=== PATIENT | male | born 1960 | race African-American/Black ===

== ENCOUNTER 2022-06-27 06:37 | Inpatient (IN) | payer MEDICARE, MEDICAID ==
[~2022-06-27] VITALS: Ht 182.9 cm; Wt 68.0 kg
[2022-06-27 08:09] LABS: BASOPHILS % 1.2 % (0.0-2.0); EOSINOPHILS % 1.3 % (0.0-5.0); HEMATOCRIT. 46.1 % (42.0-52.0); HEMOGLOBIN. 15.9 g/dL (14.0-18.0); LYMPHOCYTES % 27.6 % (20.0-50.0); MEAN CORPUSCULAR HEMOGLOBIN 35.2 pg (28.0-32.0); MEAN CORPUSCULAR VOLUME 102.5 fL (80.0-94.0); MEAN PLATELET VOLUME 7.3 fl (7.4-10.4); MONOCYTES % 4.4 % (2.0-8.0); NEUTROPHILS % 65.5 % (40.0-76.0); PLATELET 334 x1000/uL (130-400); RED CELL DISTRIBUTION WIDTH 15.6 % (11.6-14.6)
[2022-06-27 08:14] LABS: CHLORIDE 107 mEq/L (98-107)
[2022-06-27] MEDS ORDERED: SODIUM CHLORIDE 0.9% 1,000 ML IV ONE (10:45)
[2022-06-27] MEDS ORDERED: ONDANSETRON HCL 4MG/2ML INJ IV ONE (10:45)
[2022-06-27] MEDS ORDERED: DEXTROSE 10% WATER 500 ML IV ONE (13:15)
[2022-06-27 13:32] LABS: CLARITY URINE CLEAR (CLEAR); COLOR URINE YELLOW (YELLOW); KETONES URINE 1+ (NEGATIVE); LEUKOCYTE ESTERASE URINE NEGATIVE (NEGATIVE); NITRITE URINE NEGATIVE (NEGATIVE); OCCULT BLOOD URINE TRACE (NEGATIVE); PROTEIN URINE 2+ (NEGATIVE); SPECIFIC GRAVITY URINE 1.017 (1.005-1.030)
[2022-06-27 17:15] VITALS: BP 161/85
[2022-06-27] MEDS ORDERED: ACETAMINOPHEN 325MG TABLET PO PRN (18:00)
[2022-06-27] MEDS: PANTOPRAZOLE SODIUM 40 MG/VIAL IV SCH (18:30)
[2022-06-27] MEDS: ONDANSETRON HCL 4MG/2ML INJ IV PRN ×2 (18:32→22:00)
[2022-06-27 20:00] VITALS: BP 129/87
[2022-06-27] MEDS ORDERED: CEFTRIAXONE 1GM PREMIX 50 ML IV SCH (20:00)
[2022-06-27] MEDS: ENOXAPARIN 40MG/0.4ML SYR SUBCUT SCH (22:00)
[2022-06-28] VITALS: BP 152/82
[2022-06-28 04:00] VITALS: BP 137/81
[2022-06-28 05:32] LABS: HEMATOCRIT. 42.5 % (42.0-52.0); HEMOGLOBIN. 14.8 g/dL (14.0-18.0); MEAN CORPUSCULAR HEMOGLOBIN 35.4 pg (28.0-32.0); MEAN CORPUSCULAR VOLUME 101.4 fL (80.0-94.0); MEAN PLATELET VOLUME 8.2 fl (7.4-10.4); PLATELET 284 x1000/uL (130-400); RED BLOOD CELL COUNT 4.19 mill/uL (4.7-6.1)
[2022-06-28 06:43] LABS: CHLORIDE 100 mEq/L (98-107)
[2022-06-28 08:00] VITALS: BP 157/93
[2022-06-28] MEDS: PANTOPRAZOLE SODIUM 40 MG/VIAL IV SCH (09:00)
[2022-06-28] MEDS: CLONIDINE 0.1MG TABLET PO PRN (11:57)
[2022-06-28 12:00] VITALS: BP 160/96
[2022-06-28] MEDS: FAMOTIDINE 20MG/2ML VIAL IV SCH (12:15)
[2022-06-28] MEDS: MULTIVITAMINS,THER W-MINERALS TABLET PO SCH (13:30)
[2022-06-28 13:56] LABS: PLATELET ESTIMATE NORMAL
[2022-06-28 16:00] VITALS: BP 157/97
[2022-06-28] MEDS: FOLIC ACID 1 MG, THIAMINE HCL 100 MG in DEXTROSE 5% WATER 1,000 ML IV SCH (18:10)
[2022-06-28 20:00] VITALS: BP 139/87
[2022-06-28] MEDS: CEFTRIAXONE 1,000 MG in DEXTROSE 5% WATER 50 ML IV SCH (20:53)
[2022-06-28] MEDS: ENOXAPARIN 40MG/0.4ML SYR SUBCUT SCH (20:54)
[2022-06-29] VITALS: BP 126/82
[2022-06-29] MEDS: FAMOTIDINE 20MG/2ML VIAL IV SCH ×2 (00:03→13:09)
[2022-06-29 04:00] VITALS: BP 160/101
[2022-06-29 05:49] LABS: BASOPHILS % 0.5 % (0.0-2.0); EOSINOPHILS % 2.6 % (0.0-5.0); HEMATOCRIT. 41.9 % (42.0-52.0); HEMOGLOBIN. 14.6 g/dL (14.0-18.0); LYMPHOCYTES % 9.6 % (20.0-50.0); MEAN CORPUSCULAR HEMOGLOBIN 35.3 pg (28.0-32.0); MEAN CORPUSCULAR VOLUME 101.2 fL (80.0-94.0); MEAN PLATELET VOLUME 7.9 fl (7.4-10.4); MONOCYTES % 10.1 % (2.0-8.0); NEUTROPHILS % 77.2 % (40.0-76.0); PLATELET 239 x1000/uL (130-400); RED BLOOD CELL COUNT 4.14 mill/uL (4.7-6.1); RED CELL DISTRIBUTION WIDTH 15.4 % (11.6-14.6)
[2022-06-29 05:59] VITALS: BP 155/103
[2022-06-29 06:43] LABS: INR 1.1; PROTHROMBIN TIME 11.9 sec (9.6-11.0)
[2022-06-29 08:00] VITALS: BP 152/95
[2022-06-29] MEDS: MULTIVITAMINS,THER W-MINERALS TABLET PO SCH (10:01)
[2022-06-29] MEDS: FOLIC ACID 1 MG, THIAMINE HCL 100 MG in DEXTROSE 5% WATER 1,000 ML IV SCH (10:13)
[2022-06-29] MEDS ORDERED: POTASSIUM CHLORIDE 20MEQ TABLET SR PO NR (11:15)
[2022-06-29 12:00] VITALS: BP 157/82
[2022-06-29 12:32] LABS: HEPATITIS B SURFACE ANTIGEN NEGATIVE
[2022-06-29] MEDS ORDERED: LACTULOSE 20G/30ML UDC PO PRN (17:00)
[2022-06-29 20:00] VITALS: BP 147/98
[2022-06-29] MEDS: CEFTRIAXONE 1,000 MG in DEXTROSE 5% WATER 50 ML IV SCH (21:10)
[2022-06-29] MEDS: GABAPENTIN 100MG CAPSULE PO SCH (21:11)
[2022-06-29] MEDS: ENOXAPARIN 40MG/0.4ML SYR SUBCUT SCH (21:11)
[2022-06-30] VITALS: BP 159/96
[2022-06-30] MEDS: FAMOTIDINE 20MG/2ML VIAL IV SCH (00:23)
[2022-06-30 04:00] VITALS: BP 146/101
[2022-06-30] MEDS: GABAPENTIN 100MG CAPSULE PO SCH (05:37)
[2022-06-30 07:08] LABS: BASOPHILS % 0.7 % (0.0-2.0); HEMATOCRIT. 42.3 % (42.0-52.0); HEMOGLOBIN. 14.8 g/dL (14.0-18.0); LYMPHOCYTES % 15.8 % (20.0-50.0); MEAN CORPUSCULAR HEMOGLOBIN 35.5 pg (28.0-32.0); MEAN CORPUSCULAR VOLUME 101.4 fL (80.0-94.0); MEAN PLATELET VOLUME 8.1 fl (7.4-10.4); MONOCYTES % 10.2 % (2.0-8.0); NEUTROPHILS % 66.3 % (40.0-76.0); PLATELET 225 x1000/uL (130-400); RED BLOOD CELL COUNT 4.17 mill/uL (4.7-6.1); RED CELL DISTRIBUTION WIDTH 14.8 % (11.6-14.6)
[2022-06-30 08:00] VITALS: BP 171/105
[2022-06-30 08:04] LABS: FOLIC ACID (FOLATE) SERUM 15.8 ng/mL (>5.38)
[2022-06-30] MEDS: MULTIVITAMINS,THER W-MINERALS TABLET PO SCH (08:33)
[2022-06-30] MEDS: CLONIDINE 0.1MG TABLET PO PRN (08:34)
[2022-06-30] MEDS: FOLIC ACID 1 MG, THIAMINE HCL 100 MG in DEXTROSE 5% WATER 1,000 ML IV SCH (08:34)
[2022-06-30 12:18] VITALS: BP 127/80
[2022-06-30] MEDS ORDERED: THIA100T88 MT (12:25)
[2022-06-30] MEDS ORDERED: PROT40 MT (12:25)
[2022-06-30] MEDS ORDERED: GABA-529 MT (12:25)
[2022-06-30] MEDS ORDERED: FAMOTIDINE 20MG TABLET PO SCH (21:00)
== END 2022-06-30 15:00 | disposition home or self-care (01) | DRG 391 ==
LOC: ER 07:10 → 6EST 10:55 → EDBEDREQTM 10:58 → EDBEDREQSVC 10:58 → EDBEDREQ 10:58 → 6EST 17:18
PROVIDERS: ADMIT Internal Medicine; ATTEND Internal Medicine
DX: K52.9 Noninfective gastroenteritis and colitis, unspecified (principal); G92.8 Other toxic encephalopathy; N39.0 Urinary tract infection, site not specified; N17.9 Acute kidney failure, unspecified; E72.20 Disorder of urea cycle metabolism, unspecified; E46 Unspecified protein-calorie malnutrition; K29.20 Alcoholic gastritis without bleeding; F10.20 Alcohol dependence, uncomplicated; R26.9 Unspecified abnormalities of gait and mobility; G62.9 Polyneuropathy, unspecified; K76.0 Fatty (change of) liver, not elsewhere classified; N28.1 Cyst of kidney, acquired; N18.9 Chronic kidney disease, unspecified; E87.6 Hypokalemia; D53.9 Nutritional anemia, unspecified; I12.9 Hypertensive chronic kidney disease with stage 1 through stage 4 chronic kidney disease, or unspecified chronic kidney disease; Z59.00 Homelessness unspecified; Z82.49 Family history of ischemic heart disease and other diseases of the circulatory system; Z68.20 Body mass index [BMI] 20.0-20.9, adult
CPT/HCPCS: 36415; 71045; 74176; 76700; 80048; 80053; 80076; 81003; 82140; 82306; 82607; 82746; 82962; 84443; 85025; 86705; 86709; 86803; 87340; 93005; 93970; 97162; 99285; C9113; J0696; J1650; J2405; J3411; J3490; J7030; J7060; J7070

== ENCOUNTER 2022-12-23 18:50 | Emergency (ER) | payer MEDICARE, MEDICAID ==
[~2022-12-23] VITALS: Ht 182.9 cm; Wt 84.0 kg
[~2022-12-23 18:50] MED LIST: AMLO5TAB88 PO; CHLO25CA10 MT; GABA-529 MT; LOSA-412 PO; MULT-379 MT; PROT40 MT; THIA100T72 PO; THIA100T88 MT
[2022-12-23 18:51] VITALS: TEMP 98.2; O2SAT 99
[2022-12-23] MEDS ORDERED: SODIUM CHLORIDE 0.9% 500 ML IV ONE (19:15)
[2022-12-23 19:45] LABS: HEMATOCRIT. 47.5 % (42.0-52.0); HEMOGLOBIN. 15.7 g/dL (14.0-18.0); MEAN CORPUSCULAR HGB CONC 33.1 g/dL (31.0-37.0); MEAN CORPUSCULAR VOLUME 102.7 fL (80.0-94.0); MEAN PLATELET VOLUME 6.9 fl (7.4-10.4); PLATELET 409 x1000/uL (130-400); RED BLOOD CELL COUNT 4.62 mill/uL (4.7-6.1); RED CELL DISTRIBUTION WIDTH 17.1 % (11.6-14.6); WHITE BLOOD COUNT 5.4 x1000/uL (4.5-11.0)
[2022-12-23 19:57] LABS: DIFFERENTIAL COMMENT 1
[2022-12-23 20:35] LABS: CHLORIDE 111 mEq/L (98-107); INDEX HEMOLYSI 1 (1-3); INDEX ICTERIC 1 (1-4); INDEX LIPEMIC 1 (1-3); POTASSIUM 4.2 mEq/L (3.5-5.1); SODIUM 140 mEq/L (136-145)
[2022-12-23 20:50] LABS: ALANINE AMINOTRANSFERASE 29 IU/L (13-61); ALBUMIN 3.6 g/dL (3.4-5.0); ASPARTATE AMINOTRANSFERASE 50 IU/L (15-37); BILIRUBIN TOTAL 1.1 mg/dL (0.1-1.0); CARBON DIOXIDE 24 mEq/L (21-32); CREATININE 1.5 mg/dL (0.6-1.3); ETHANOL BLOOD 356 mg/dL (<10); GLUCOSE 92 mg/dL (70-105); PROTEIN TOTAL 7.7 g/dL (6.0-8.3); UREA NITROGEN BLOOD 20 mg/dL (7-21)
[2022-12-23 20:52] LABS: CALCIUM 8.3 mg/dL (8.5-10.1)
[2022-12-23 21:50] LABS: PLATELET ESTIMATE INCREASED
[2022-12-23 21:51] LABS: ANISOCYTOSIS 1+
[2022-12-23 23:30] VITALS: BP 140/86; PULSE 80; RESP 16
== END 2022-12-23 23:36 | disposition home or self-care (01) ==
LOC: ER 18:50
DX: F10.129 Alcohol abuse with intoxication, unspecified (principal); F12.10 Cannabis abuse, uncomplicated; I10 Essential (primary) hypertension; E11.9 Type 2 diabetes mellitus without complications; Z79.899 Other long term (current) drug therapy; Z98.890 Other specified postprocedural states; Y90.8 Blood alcohol level of 240 mg/100 ml or more
CPT/HCPCS: 80053; 80320; 85025; 36415; 93005; 96360; 99284; J7040; G0480